=== PATIENT | male | born 2000 | race Caucasian/White ===

== ENCOUNTER 2024-12-30 17:51 | Emergency (ER) | payer MEDICAID ==
[~2024-12-30] VITALS: Ht 172.7 cm; Wt 63.6 kg
[2024-12-30 17:57] VITALS: TEMP 98.1
[2024-12-30 22:30] VITALS: BP 118/70; PULSE 94; RESP 16; O2SAT 97
[2024-12-30] MEDS ORDERED: SULF1TAB94 PO (22:32)
[2024-12-30] MEDS ORDERED: CEPH-558 PO (22:32)
[2024-12-30] MEDS: CefTRIAXone SODIUM 1 GM/VIAL IM ONE (22:42)
[2024-12-30] MEDS: LIDOCAINE/PF 1% 2 ML VIAL IM ONE (22:42)
[2024-12-30] MEDS: SULFAMETHOX/TRIMETH DS 800-160 MG/TABLET PO ONE (22:42)
== END 2024-12-30 22:51 | disposition home or self-care (01) ==
LOC: EMS 17:51
DX: L03.113 Cellulitis of right upper limb (principal); F15.90 Other stimulant use, unspecified, uncomplicated; Z79.899 Other long term (current) drug therapy
CPT/HCPCS: 99283; 96372; J0696; J3490